=== PATIENT | female | born 1980 | race Two or more races ===

== ENCOUNTER 2018-08-23 23:13 | Emergency (ER) | payer MEDICAID ==
[~2018-08-23] VITALS: Ht 170.2 cm; Wt 85.0 kg
[2018-08-23 23:18] VITALS: BP 159/101
== END 2018-08-24 00:49 | disposition left against medical advice (07) ==
LOC: ER 23:13
DX: Z53.21 Procedure and treatment not carried out due to patient leaving prior to being seen by health care provider (principal)